=== PATIENT | female | born 1970 | race American Indian/Alaskan Native ===

== ENCOUNTER 2020-07-21 08:36 | Day surgery (SDC) | payer OTHER ==
[~2020-07-21 08:36] MED LIST: SODIUM CHLORIDE 0.9% 1000 ML 1,000 ML IV SCH
--- NOTE | 2020-07-21 09:17 | Anesthesia Day of Surgery ---
Anesthesia Day of Surgery - Day of Surgery Patient Examined: Yes Patient H&P Reviewed: Yes Patient is NPO: Yes
--- NOTE | 2020-07-21 09:17 | Anesthesia Consultation ---
Anesthesia Consult and Med Hx Date of service: 07/21/20 - Airway Anesthetic Teeth Evaluation: Good ROM Head & Neck: Adequate Mental/Hyoid Distance: Adequate Mallampati Class: Class II Intubation Access Assessment: Probably Good - Pre-Operative Health Status ASA Pre-Surgery Classification: ASA2 Proposed Anesthetic Plan: MAC - Cardiovascular System Hx Hypertension: Yes Hx Angina: No (had some CP 2 weeks ago - negative cardiac workup) - Gastrointestinal Hx Gastroesophageal Reflux Disease: Yes - Other Systems Hx Obesity: Yes (BMI 34.4)
--- NOTE | 2020-07-21 09:50 | History and Physical Report ---
ADMIT DATE: 07/21/2020 HISTORY OF PRESENT ILLNESS: This is a 50-year-old, slightly obese female who had to go to the ER because of atypical chest pain that has since been worked up. She has been advised to have an EGD done and also because of her age, a colonoscopy, which she is willing to do. She has an underlying history of hypertension, normally is on carvedilol, aspirin, ____ and Protonix. SOCIAL HISTORY: She denies any history of smoking or alcohol use. No flu shots. ALLERGIES: No known allergies. PHYSICAL EXAMINATION: VITAL SIGNS: Temperature is 97.8, blood pressure 139/85, pulse is 73, height is 5 feet 5 inches, weight is 207. NECK: Shows no JVD. LUNGS: Clear to auscultation. HEART: Normal. ABDOMEN: Shows some mid abdominal tenderness. Bowel sounds present. EXTREMITIES: No pedal edema. NEUROLOGIC: The patient is otherwise alert and oriented. ASSESSMENT: Colon polyp screening, gastroesophageal reflux symptoms, possible esophagitis, hypertension. PLAN: To do an EGD and a colonoscopy at [facility] on 07/21/2020. The patient has received Suprep as a prep. TID: [id number] RECEIPT: [id number] KARINA/CHAN
[2020-07-21] MEDS ORDERED: propofoL 200 MG/20 ML VIAL IV ONE ×3 (10:13→10:42)
[2020-07-21] MEDS ORDERED: fentaNYL 100 MCG/2 ML INJ ONE (10:13)
--- NOTE | 2020-07-21 11:03 | Procedure Note ---
Date of procedure: 07/21/20 Pre-op diagnosis: GERD/ Colon Polyp Screening Post-op diagnosis: other (Mild to Moderate Erosive Esophagitis/R/O Eosiniphilic Esophagitis/ Gastritis/ No Colon Polyps noted/ Moderate, Left Colon Diverticuli/Normal, Ileal Mucosa/ Minor. Internal Hemorrhoid) Procedure: EGd with Biopsy and Colonoscopy Anesthesia: [facility] [place] Surgeon: RISA PAL Estimated blood loss: minimal Pathology: list Specimen disposition: to lab Condition: stable
--- NOTE | 2020-07-21 11:22 | Operative Report ---
DATE OF SURGERY: 07/21/2020 PROCEDURE: Colonoscopy with cold snare polypectomy and cold biopsy. INDICATIONS: This is a 50-year-old female who had laparoscopic surgery done and was noted to have possible narrowing of the left colon. Colonoscopy was done to make sure that there was not any colonic pathology noted in the colon. DESCRIPTION OF PROCEDURE: Procedure was done after getting informed consent with MAC anesthesia. Initial rectal examination showed presence of mild to moderate external hemorrhoid and the instrument was then passed through the rectum onto the cecum, which was identified by the ileocecal valve and the appendiceal orifice. The cecum was also viewed on the retroverted view, no additional pathology was noted in the cecum. In the ascending colon, there was a 9-10 mm sessile polyp that was removed by cold snare excision and was probably not retrieved. There was minimal bleeding from that site. The remaining part of the ascending colon and the transverse colon showed normal mucosa. There were few scattered diverticula noted in the left colon, which may have caused some scarring diverticulitis and scarring in the past that may have caused the appearance of colon narrowing through laparoscopy, but there was no apparent narrowing noted in the endoscopic exam. A few biopsies were done to rule out for possible microscopic colitis on the left side with some minimal bleeding and the rectum showed some minor internal hemorrhoids, possibly hyperplastic that was removed with minimal bleeding and the rectum showed mild to moderate internal hemorrhoid with some presence of external hemorrhoids. ASSESSMENT: Abnormal colon as per laparoscopic exam. No colon narrowing noted during the colonoscopy. Left colon diverticula, which is mild to moderate; rule out microscopic colitis from the left colon, ascending colon polyp removed by cold snare polypectomy, possibly not retrieved. Rectal polyp, which was hyperplastic and removed by cold biopsy and mild to moderate internal hemorrhoid and external hemorrhoid. PLAN: To encourage the patient to take fiber supplements. Avoid aspirin and aspirin-related products, take [id number] medication for the hemorrhoids and otherwise resume home medications and follow up in the office in 1-2 weeks' time. Procedure was done in the GI lab with assistance of the GI lab team, which included NISHANT, Sandra Higgins, Pricilla Momin and with the assistance of anesthesia. TID: [id number] RECEIPT: [id number] KARINA/CHAN
--- NOTE | 2020-07-21 11:24 | Operative Report ---
DATE OF SURGERY: 07/21/2020 PROCEDURE: EGD. INDICATIONS: This is a 50-year-old female who had presented to the hospital because of atypical chest pain that has been worked up. EGD was done to assess for possible GERD symptoms or any significant upper GI pathology. DESCRIPTION OF PROCEDURE: Procedure was done after getting informed consent with MAC anesthesia. Instrument was passed through the hypopharynx into the esophagus, which did show some mild to moderate erosive esophagitis. Biopsy was done from the distal esophagus to assess for the severity of the erosive esophagitis and from the mid esophagus to rule out for eosinophilic esophagitis. The stomach showed gastritis. The pylorus is patent. The duodenum in the first and second portion appeared normal. Biopsy was done from the gastric antrum, gastric body, and angularis incisura to rule out for H. pylori and atrophic gastritis with minimal bleeding. ASSESSMENT: Gastroesophageal reflux disease symptoms, mild to moderate erosive esophagitis, gastritis. PLAN: To treat the patient with PPI and have the patient avoid aspirin and aspirin-related products for the next few days. A colonoscopy is to be done as part of colon polyp screening. The patient will be asked to follow up in the office in 1-2 weeks' time. Procedure was done in the GI lab with assistance from the GI lab team, which included the GI nurse, Sandra Higgins as well as Pricilla johnston and with the assistance of anesthesia, there was also a training GI nurse present. TID: [id number] RECEIPT: [id number] KARINA/CHAN
--- NOTE | 2020-07-21 11:27 | Operative Report ---
DATE OF SURGERY: 07/21/2020 PROCEDURE: Colonoscopy. INDICATIONS: This is a 50-year-old female who had an EGD done prior to the colonoscopy because of GERD symptoms and was noted to have mild to moderate erosive esophagitis and gastritis. Colonoscopy was done as part of colon polyp screening. DESCRIPTION OF PROCEDURE: Procedure was done after getting informed consent with MAC anesthesia. Initial rectal examination was unremarkable. The instrument was passed through the rectum onto the cecum, which was identified by the ileocecal valve and the appendiceal orifice. The terminal ileum was intubated, showed normal mucosa. Transverse colon showed normal mucosa. There were a few left colon diverticula noted and the rectum showed some minor internal hemorrhoid on the retroverted view. The terminal ileum was intubated, showed normal mucosa. There was no bleeding associated with the colonoscopy and no complications associated with the procedure. ASSESSMENT: Colon polyp screening, no colon polyps noted. Few left colon diverticula. Minor internal hemorrhoids. Normal ileal mucosa. PLAN: To treat the patient with PPI because of the EGD findings of esophagitis and gastritis. Treat the patient with fiber supplements and have the patient follow up in the office in 1-2 weeks' time. Procedure was done in the GI lab with assistance of the GI lab team, which included the GI nurse, copier repair technician and anesthesia. TID: [id number] RECEIPT: [id number] LUZMARIA
--- NOTE | 2020-07-21 12:05 | Procedure Note ---
Date of procedure: 07/21/20 Pre-op diagnosis: Anemia Post-op diagnosis: other (Mild to Moderate Erosive Esophagitis/ R/O Eosinophilic Esophagitis/ Gastritis/R/O Celiac Disease) Procedure: EGD with Biopsy and Colonoscopy and Cold Snare Polypectomy and Cold Biopsy [place] [facility] [place]: RISA PAL Estimated blood loss: minimal Pathology: list Specimen disposition: to lab Condition: stable Disposition: same day (Treat with PPI. Avoid aspirin ad NSAID for 4 days; otherwise resume previous medication and follow up in 1 to 2 weeks ([phone]).)
--- NOTE | 2020-07-21 17:14 | Post Anesthesia Evaluation ---
- Post Anesthesia Evaluation Patient Participated: Yes Airway Patent: Yes Stable Respiratory Function: Yes Nausea/Vomiting: No Temp > 96.8F: Yes Pain Manageable: Yes Adequeate Hydration: Yes Anesthesia Complications: No Block Receding Appropriately: Not Applicable Patient on Ventilator: No
[2020-07-21 21:43] VITALS: BP 119/73
== END 2020-07-21 08:37 | disposition home or self-care (01) ==
LOC: GIO 08:36
DX: Z12.11 Encounter for screening for malignant neoplasm of colon (principal); R07.89 Other chest pain; K21.00 Gastro-esophageal reflux disease with esophagitis, without bleeding; K31.89 Other diseases of stomach and duodenum; K29.70 Gastritis, unspecified, without bleeding; B96.81 Helicobacter pylori [H. pylori] as the cause of diseases classified elsewhere; K57.30 Diverticulosis of large intestine without perforation or abscess without bleeding; K64.8 Other hemorrhoids; K63.5 Polyp of colon; K63.89 Other specified diseases of intestine; I10 Essential (primary) hypertension; E66.9 Obesity, unspecified; Z68.34 Body mass index [BMI] 34.0-34.9, adult; Z79.899 Other long term (current) drug therapy
CPT/HCPCS: 43239; 45380; 45385; 88305; 88342; J2704; J3010; J7030